=== PATIENT | female | born 1995 | race African-American/Black ===

== ENCOUNTER 2017-03-24 16:23 | Emergency (ER) | payer OTHER ==
[2017-03-24 16:28] VITALS: BP 110/51; PULSE 97; TEMP 99.4; BMI 29.5
--- NOTE | 2017-03-24 16:30 | PDOC ---
Rapid Medical Evaluation Time Seen by Provider: 03/24/17 16:25 Medical Evaluation: Allergies Allergy/AdvReac Type Severity Reaction Status Date / Time No Known Allergies Allergy Verified 03/13/15 03:09 03/24/17 16:26 I have performed a brief in-person evaluation of this patient. The patient presents with a chief complaint of: 18 weeks preg by dates with cough and right upper back pain x3 days Pertinent physical exam findings: HEENT: tonsillar erythema without exudate PULM: diminished to right base I have ordered the following: influenza testing The patient will proceed to the ED for further evaluation. Discharge Disposition - Diagnosis Cough - Referrals - Patient Instructions - Post Discharge Activity
[2017-03-24] MEDS ORDERED: ACETAMINOPHEN 325 MG TABLET (FP) PO ONE (17:07)
--- NOTE | 2017-03-24 17:07 | PDOC ---
History of Present Illness - General Chief Complaint: Cold Symptoms Stated Complaint: COLD S/S Time Seen by Provider: 03/24/17 16:25 History Source: Patient - History of Present Illness Timing/Duration: reports: other Associated Symptoms: reports: chest pain/soreness, cough, shortness of breath, sore throat. denies: fever/chills, headache, nasal congestion, wheezing Past History - Past Medical History Allergies/Adverse Reactions: Allergies Allergy/AdvReac Type Severity Reaction Status Date / Time No Known Allergies Allergy Verified 03/24/17 16:28 Home Medications: Ambulatory Orders Oseltamivir Phosphate [Tamiflu] 75 mg PO BID #10 capsule 03/24/17 COPD: No DVT: No - Reproductive History (#): 2 Para: 0 Cervical CA: No Dysfunctional Uterine Bleeding: No Ectopic : No Endometrial CA: No Polycystic Ovaries: No Therapeutic (s) & number: Yes (2) Tubal Ligation: No Spontaneous : 0 - Immunization History Immunization Up to Date: Yes - Suicide/Smoking/Psychosocial Hx Smoking History: Never smoked Have you smoked in the past 12 months: No Number of Cigarettes Smoked Daily: 0 Cigars Per Day: 0 Hx Alcohol Use: No Drug/Substance Use Hx: No Substance Use Type: None Review of Systems - Review of Systems Constitutional: No: Fever Respiratory: Yes: Cough, Shortness of Breath. No: Wheezing Cardiac (ROS): Yes: Chest Pain ABD/GI: No: Diarrhea, Vomiting *Physical Exam - Vital Signs Last Vital Signs Temp Pulse Resp BP Pulse Ox 99.4 F 97 H 20 110/51 100 03/24/17 16:24 03/24/17 16:24 03/24/17 16:24 03/24/17 16:24 03/24/17 16:24 - Physical Exam General Appearance: Yes: Appropriately Dressed. No: Apparent Distress HEENT: positive: Normal ENT Inspection, Normal Voice. negative: Scleral Icterus (R), Scleral Icterus (L) Neck: positive: Supple. negative: Lymphadenopathy (R), Lymphadenopathy (L) Respiratory/Chest: positive: Decreased Breath Sounds (to R base). negative: Respiratory Distress Cardiovascular: positive: Regular Rate, S1, S2 Integumentary: positive: Dry, Warm Neurologic: positive: Fully Oriented, Alert, Normal Mood/Affect Medical Decision Making - Medical Decision Making 03/24/17 17:06 21-year-old female approximately 18 weeks with no issues with so far, presents with dry cough with pleuritic chest pain only with coughing and possible shortness of breath x 2 days. No hemoptysis, ear pain, body aches, fever or chills. No recent sick contacts or travel. Patient well- appearing and stable with exam only remarkable for decreased sound to right base. Influenza and chest x-ray pending 03/24/17 17:12 03/24/17 18:32 Flu A+. Pt remained stable and well appearing, in ED. Will discharge with Tamiflu given current . Patient to contact her OB in am to make aware if positive flu. Strict return precautions given 03/24/17 18:36 *DC/Admit/Observation/Transfer Diagnosis at time of Disposition: Influenza A - Discharge Dispostion Disposition: HOME Condition at time of disposition: Stable - Prescriptions Prescriptions: Oseltamivir Phosphate [Tamiflu] 75 mg PO BID #10 capsule - Referrals - Patient Instructions Printed Discharge Instructions: Influenza Additional Instructions: Rest, to drink plenty of fluids, take Tylenol for pain or fever and take Tamiflu is indicated. If symptoms worsen and you develop constant shortness of breath, chest pain and escalating fever, return to ER immediately. Please contact your OB tomorrow to make aware of positive flu - Post Discharge Activity
[2017-03-24] MEDS ORDERED: ACETAMINOPHEN 325 MG TABLET (FP) ONE (17:23)
== END 2017-03-24 18:45 | disposition home or self-care (01) ==
LOC: JERFT 16:23
DX: O98.512 Other viral diseases complicating pregnancy, second trimester (principal); B33.8 Other specified viral diseases; J09.X2 Influenza due to identified novel influenza A virus with other respiratory manifestations; Z3A.18 18 weeks gestation of pregnancy
CPT/HCPCS: 71046-TC; 87804; 99281-25

== ENCOUNTER 2017-08-23 16:35 | Inpatient (IN) | payer OTHER ==
[2017-08-23 17:28] VITALS: BMI 30.1
[2017-08-23] MEDS ORDERED: TUBERCULIN PPD 5 TU/0.1ML SYRINGE (IN PATIENT USE ONLY) ID ONE (18:45)
[2017-08-23 19:29] LABS: BASO % 0.6 % (0-2.0); EOS % 0.6 % (0-4.5); HEMATOCRIT 37.7 % (32.4-45.2); HEMOGLOBIN 11.8 GM/dL (10.7-15.3); LYMPH % 19.7 % (8-40); MCH 24.3 pg (25.7-33.7); MCHC 31.3 g/dl (32.0-36.0); MEAN CELL VOLUME 77.5 fl (80-96); MEAN PLT VOLUME 10.6 fl (7.5-11.1); MONO % 5.2 % (3.8-10.2); NEUT % 73.9 % (42.8-82.8); PLATELET COUNT 185 K/MM3 (134-434); RBC 4.86 M/mm3 (3.60-5.2); RDW 14.7 % (11.6-15.6); WHITE BLOOD COUNT 5.6 K/mm3 (4.0-10.0)
[2017-08-23 19:47] LABS: INR 0.98 (0.82-1.09); PROTHROMBIN TIME (PATIENT) 11.1 SEC (9.7-13.0)
[2017-08-23 19:50] LABS: ACTIVATED PTT 25.2 SECONDS (25.2-36.5)
[2017-08-23 20:18] LABS: ANION GAP 10 (8-16); BLOOD UREA NITROGEN 8 mg/dL (7-18); CALCIUM 9.1 mg/dL (8.5-10.1); CHLORIDE 101 mmol/L (98-107); CO2 26 mmol/L (21-32); CREATININE 0.7 mg/dL (0.55-1.02); GLUCOSE,RANDOM 97 mg/dL (74-106); POTASSIUM 3.8 mmol/L (3.5-5.1); SODIUM 137 mmol/L (136-145)
--- NOTE | 2017-08-23 20:24 | PN ---
Progress Note, Labor Vaginal Exam #1 Labor Exam Date: 08/23/17 Labor Exam Time: 20:15 Heart Rate (range): 120's Dilatation: 3 Effacement (%): 50 Amniotic Membrane Status: Intact Presentation: Vertex/Position Station: -3 (22yo P0 @ 39.6wks, post term IOL MF Status reasuring Cervidil placed in the posterior fornix)
[2017-08-23] MEDS ORDERED: DINOPROSTONE 10 MG VAGINAL SUPPOSITORY VG ONE (20:39)
[2017-08-23] MEDS: ELECTROLYTE-148 SOLN 1,000 ML IV SCH ×2 (21:30→23:30)
[2017-08-23] MEDS ORDERED: BUTORPHANOL TARTRATE 1 MG/ML VIAL ONE ×2 (22:52)
[2017-08-23] MEDS ORDERED: PROMETHAZINE HCL 25 MG/1 ML VIAL ONE (22:53)
[2017-08-23] MEDS ORDERED: PROMETHAZINE HCL 25 MG/1 ML VIAL IVPB ONE (23:00)
[2017-08-23] MEDS ORDERED: BUTORPHANOL TARTRATE 1 MG/ML VIAL IVPB ONE (23:00)
[2017-08-23] MEDS ORDERED: OXYTOCIN 15 UNITS/ LR 250 ML 250 ML IVPB SCH (23:45)
[2017-08-23] MEDS ORDERED: OXYTOCIN 30 UNITS in 0.9% NS 30 UNIT/500 ML INFUS.BAG IVPB SCH (23:45)
[2017-08-24] MEDS ORDERED: AMPICILLIN - 2 GM in SODIUM CHLORIDE 100 ML IVPB ONE (01:00)
[2017-08-24] MEDS ORDERED: AMPICILLIN SODIUM 2 GM VIAL ONE (01:21)
[2017-08-24] MEDS ORDERED: BUPIVACAINE HCL/PF 0.25% (2.5MG/ML) 10 ML VIAL ONE (01:40)
[2017-08-24] MEDS ORDERED: LIDO 2%/EPI 1:200000 PRESRVFRE (20 ML SDVIAL) ONE (01:40)
[2017-08-24] MEDS ORDERED: FENTANYL/BUPIVACAINE/NS/PF - PCEA - 50 ML DISP.SYRIN EP ONE (01:47)
[2017-08-24] MEDS ORDERED: NALOXONE HCL 0.4 MG/ML VIAL IVPUSH PRN (02:14)
[2017-08-24] MEDS ORDERED: FENTANYL/BUPIVACAINE/NS/PF - PCEA - 50 ML DISP.SYRIN EP SCH (02:15)
[2017-08-24] MEDS ORDERED: OXYTOCIN 20 UNITS in 0.9% NS 20 UNIT/1,000 ML INFUS.BAG IV ONE ×2 (03:43→07:37)
[2017-08-24] MEDS ORDERED: AMPICILLIN SODIUM 1 GM VIAL ONE (04:24)
--- NOTE | 2017-08-24 04:42 | PN ---
Progress Note, Labor Vaginal Exam #2 Labor Exam Date: 08/24/17 Labor Exam Time: 04:30 Heart Rate (range): 130 Dilatation: FD Effacement (%): 100 Amniotic Membrane Status: Ruptured Presentation: Vertex/Position Station: +2 (Patient is instructed to push She is not cooparative, behaving inappropriately, not following instructions)
[2017-08-24] MEDS ORDERED: AMPICILLIN - 1 GM in SODIUM CHLORIDE 100 ML IVPB SCH (05:00)
--- NOTE | 2017-08-24 05:39 | PN ---
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 Infant Gender: Male Position: Left, OA Total Hours ROM (Hrs/Mins): Unknown, noted ROM @ FD - 1 Minute Total Score: 9 5 Minutes Total Score: 9 - [place] Feeding Plan Initial Plan: Elected not to breastfeed exclusively throughout hospitalization Remarks - Remarks Remarks: Patient was Fully Dilated, ABI vertex at +3 station, providing very poor effort FHR had repetitive variable decels Kiwi vacuum applied 2 pop offs 3 pulls Successful delivery over intact perineum Sulcal tear noted and repaired with 2-0 Chromic vaginal 1st degree repaired with 2-0 Chromic labia minora swelling noted Gaviria replaced ice to perineum
--- NOTE | 2017-08-24 05:59 | HP ---
Past Medical History - Primary Care Physician PCP:: Bobby Abraham - Admission Chief Complaint: 22yo P0 @ 39.6wks with decreasing CHUCK for IOL. +FM, no VB, no LOF, no ctx History of Present Illness: 1. GBS + for Ampicillin 2. Late transfer of care 3. Abnormal 2hr GTT 4. Anemia History Source: Patient, Medical Record Limitations to Obtaining History: No Limitations - Past Medical History ...: 3 ...Para: 0 ...Term: 0 ...: 0 ...Spon : 0 ...Induced : 2 ...Multiple Gestation: 0 ...LMP: 11/17/16 ... Weeks Gestation by Dates: 39.6 ...EDC by Dates: 08/24/17 Heme/Onc: Yes: Anemia Additional Medical History: Eye surgery - Past Surgical History Past Surgical History: Yes: None Hx Myomectomy: No Hx Transabdominal Cerclage: No - Smoking History Smoking history: Never smoked Have you smoked in the past 12 months: No Aproximately how many cigarettes per day: 0 - Alcohol/Substance Use Hx Alcohol Use: No History of Substance Use: reports: None - Social History Usual Living Arrangement: Yes: Alone Home Medications - Allergies Allergies/Adverse Reactions: Allergies Allergy/AdvReac Type Severity Reaction Status Date / Time No Known Allergies Allergy Verified 08/23/17 17:47 - Home Medications Home Medications: Ambulatory Orders Ferrous Sulfate [Iron] 325 mg PO DAILY 08/07/17 Vit/Iron Fum/Folic AC [ Tablet] 1 each PO DAILY 08/07/17 Review of Systems - Review of Systems Constitutional: reports: No Symptoms Eyes: reports: No Symptoms HENT: reports: No Symptoms Neck: reports: No Symptoms Cardiovascular: reports: No Symptoms Respiratory: reports: No Symptoms Gastrointestinal: reports: No Symptoms Genitourinary: reports: No Symptoms Breasts: reports: No Symptoms Reported Musculoskeletal: reports: No Symptoms Integumentary: reports: No Symptoms Neurological: reports: No Symptoms Endocrine: reports: No Symptoms Hematology/Lymphatic: reports: No Symptoms Psychiatric: reports: No Symptoms Physical Exam - Maternity Vital Signs: Vital Signs Temperature 97.2 F L 08/24/17 03:00 Pulse Rate 76 08/24/17 03:30 Respiratory Rate 17 08/24/17 03:30 Blood Pressure 120/61 08/24/17 03:30 O2 Sat by Pulse Oximetry (%) 100 08/24/17 03:30 Constitutional: Yes: Well Nourished Eyes: Yes: WNL HENT: Yes: WNL, Atraumatic, Normocephalic Neck: Yes: WNL, Supple, Trachea Midline Cardiovascular: Yes: WNL, Regular Rate and Rhythm Lungs: Clear to auscultation Breast(s): Yes: WNL - Abdominal Exam/OB Fundal Height: 40 Number of Fetuses: Single Presentation: Vertex Contractions: No Monitor Mode: External Heart Rate Location: Midline Category: I Accelerations: Uniform Decelerations: None - Vaginal Exam/OB Speculum Exam: No Dilatation (cm): 3 Effacement (%): 50 Amniotic Membrane Status: Intact Presentation: Vertex/Position Station: -3 - Physical Exam Musculoskeletal: Yes: WNL Extremities: Yes: WNL Edema: No ...Motor Strength: WNL Psychiatric: Yes: WNL, Alert, Oriented - Labs Lab Results: CBC, BMP 08/23/17 19:00 08/23/17 19:00 Assessment/Plan 22yo P0 @ 39.6wks with decreasing CHUCK admited for IOL Cervidil placed in the posterior fornix Ampicillin for GBS prophilaxis in active labor Pain medication as needed MF status reassuring
[2017-08-24] MEDS ORDERED: WITCH HAZEL 50% (TUCKS) 40 PAD/JAR PAD TP PRN (06:15)
[2017-08-24] MEDS ORDERED: BISACODYL 10 MG SUPP.RECT RC PRN (06:15)
[2017-08-24] MEDS ORDERED: METHYLERGONOVINE MALEATE 0.2 MG/1 ML AMP IM PRN (06:15)
[2017-08-24] MEDS ORDERED: BENZOCAINE 28 GM HEMORRHOIDAL OINTMENT TP PRN (06:15)
[2017-08-24] MEDS ORDERED: D5W-LR W/ 20 UNITS OXYTOCIN 20 UNIT/1,000 ML INFUS.BAG IV SCH (06:15)
[2017-08-24] MEDS ORDERED: BENZOCAINE 20% 57 GM BOTTLE TP PRN (06:15)
[2017-08-24 07:34] LABS: VENOUS PC02 55.8 mmHg (38-52); VENOUS PH 7.3 (7.32-7.42)
[2017-08-24] MEDS: FERROUS SO4 325 MG TABLET (FP) PO SCH ×2 (08:00→16:47)
[2017-08-24] MEDS: PRENATAL VITAMINS W/ FOLIC ACID TABLET (FP) PO SCH (09:57)
[2017-08-24] MEDS: IBUPROFEN 600 MG TABLET (FP) PO PRN ×2 (13:50→21:15)
[2017-08-24] MEDS: ACETAMINOPHEN 325 MG TABLET (FP) PO PRN (21:15)
[2017-08-25] MEDS: ACETAMINOPHEN 325 MG TABLET (FP) PO PRN ×3 (05:04→18:00)
[2017-08-25] MEDS: IBUPROFEN 600 MG TABLET (FP) PO PRN ×3 (05:05→18:02)
--- NOTE | 2017-08-25 07:58 | PN ---
Post Progress Note - Subjective Subjective: No complaints. Vulva swollen but no pain Post Day: 1 Type of Delivery: Vital Signs: Vital Signs Temperature 98.5 F 08/25/17 06:00 Pulse Rate 69 08/25/17 06:00 Respiratory Rate 20 08/25/17 06:00 Blood Pressure 115/65 08/25/17 06:00 O2 Sat by Pulse Oximetry (%) 100 08/24/17 07:00 Breast Exam: Yes: Soft Uterus: Yes: Fundus Firm, Non-tender Abdomen/GI: Yes: Abdomen soft, Tolerating PO Lochia: Yes: Rubra Lochia, amount: Small Extremities: Yes: Calves non-tender Perineum: Yes: Intact Activity: Ambulating - Labs Labs: CBC WBC 5.6 K/mm3 (4.0-10.0) 08/23/17 19:00 RBC 4.86 M/mm3 (3.60-5.2) 08/23/17 19:00 Hgb 11.8 GM/dL (10.7-15.3) 08/23/17 19:00 Hct 37.7 % (32.4-45.2) 08/23/17 19:00 MCV 77.5 fl (80-96) L 08/23/17 19:00 MCH 24.3 pg (25.7-33.7) L 08/23/17 19:00 MCHC 31.3 g/dl (32.0-36.0) L 08/23/17 19:00 RDW 14.7 % (11.6-15.6) 08/23/17 19:00 Plt Count 185 K/MM3 (134-434) 08/23/17 19:00 MPV 10.6 fl (7.5-11.1) 08/23/17 19:00 Absolute Neuts (auto) 4.1 # 08/23/17 19:00 Neutrophils % 73.9 % (42.8-82.8) 08/23/17 19:00 Lymphocytes % 19.7 % (8-40) 08/23/17 19:00 Monocytes % 5.2 % (3.8-10.2) 08/23/17 19:00 Eosinophils % 0.6 % (0-4.5) D 08/23/17 19:00 Basophils % 0.6 % (0-2.0) 08/23/17 19:00 Nucleated RBC % 0 % (0-0) 08/23/17 19:00 Assessment/Plan 22yo P1 s/p , doing well stable, afebrile. care instructions reviewed. Continue routine care. Ambulation encouraged Discharge instruction reviewed.
--- NOTE | 2017-08-25 08:02 | DS ---
Physical Exam-ASSESSMENT EXPERT Vital Signs: Vital Signs Temperature 98.5 F 08/25/17 06:00 Pulse Rate 69 08/25/17 06:00 Respiratory Rate 20 08/25/17 06:00 Blood Pressure 115/65 08/25/17 06:00 O2 Sat by Pulse Oximetry (%) 100 08/24/17 07:00 Constitutional: Yes: Well Nourished, No Distress, Calm Eyes: Yes: WNL, Conjunctiva Clear HENT: Yes: WNL, Atraumatic, Normocephalic Neck: Yes: WNL, Supple, Trachea Midline Cardiovascular: Yes: WNL, Regular Rate and Rhythm Respiratory: Yes: WNL, Regular, CTA Bilaterally Gastrointestinal: Yes: WNL, Normal Bowel Sounds, Soft ...Rectal Exam: Yes: WNL Renal/: Yes: WNL External Genitalia: Yes: Edema ....Post : Yes: Uterus firm, Uterus non-tender Breast(s): Yes: WNL Musculoskeletal: Yes: WNL Extremities: Yes: WNL Edema: Yes Edema: LLE: Trace, RLE: Trace Integumentary: Yes: WNL Neurological: Yes: WNL, Alert, Oriented ...Motor Strength: WNL Psychiatric: Yes: WNL, Alert, Oriented Labs: CBC, BMP 08/23/17 19:00 08/23/17 19:00 Delivery - Delivery Vaginal Delivery: Vacuum Extraction Type of Anesthesia: Epidural Episiotomy/Laceration: Midline, Vaginal Extension/lac, 1st degree EBL (cc): 300 Delivery, Single - Stages of Labor Date 1st Stage Initiatied: 08/24/17 Time 1st Stage Initiated: 02:15 Date 2nd Stage Initiated: 08/24/17 Time 2nd Stage Initiated: 04:30 Date of Delivery: 08/24/17 Time of Delivery: 05:06 Time Placenta Delivered: 05:09 Placenta: Yes: Spontaneous - 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 You may walk unlimited marion of and climb stairs. You may resume driving the car when you feel safe and comfortable behind the wheel. No sexual activity as instructed. Wound care If you have a bandage, leave it on, and keep dry for 48-72 hours. After that time discard the outer bandage. If they are tapes on the skin under the out of bandage leave them in place. They will peel off in the next 7 to 10 days. Do Not Peel them off. You may shower the day after surgery. If there are tapes present on the skin, you may shower over them. Diet There are no dietary restrictions. Eat healthy, high-fiber foods. Drink 6 to 8 glasses of liquid each day. This will assist in keeping your bowels are regular. Pain management You may take Tylenol or acetaminophen or Ibuprofen (for example, Motrin, Advil etc.) from my pain prescription medication is ordered should be taken as prescribed for moderate to severe pain. Call MD for any of the following: Severe pain not relieved by medication Fever of 101 or higher Excessive bleeding or drainage on dressing Inability to urinate Referrals: Bobby Abraham MD [Staff Physician] - Disposition: HOME - Home Medications Comprehensive Discharge Medication List: Ambulatory Orders Ferrous Sulfate [Iron] 325 mg PO DAILY 08/07/17 Vit/Iron Fum/Folic AC [ Tablet] 1 each PO DAILY 08/07/17
[2017-08-25] MEDS: FERROUS SO4 325 MG TABLET (FP) PO SCH ×2 (08:07→18:00)
[2017-08-25 08:27] LABS: BASO % 0.4 % (0-2.0); EOS % 0.9 % (0-4.5); HEMATOCRIT 32.2 % (32.4-45.2); HEMOGLOBIN 10.3 GM/dL (10.7-15.3); LYMPH % 13.7 % (8-40); MCHC 32.1 g/dl (32.0-36.0); MEAN PLT VOLUME 10.5 fl (7.5-11.1); MONO % 5.4 % (3.8-10.2); NEUT % 79.6 % (42.8-82.8); PLATELET COUNT 143 K/MM3 (134-434); RBC 4.13 M/mm3 (3.60-5.2); RDW 14.9 % (11.6-15.6)
[2017-08-25] MEDS: PRENATAL VITAMINS W/ FOLIC ACID TABLET (FP) PO SCH (10:19)
[2017-08-25] MEDS ORDERED: SENNOSIDES/DOCUSATE COMBO (SENNA PLUS) TABLET (UD) PO PRN (22:00)
--- NOTE | 2017-08-25 23:51 | PN ---
Progress Note (short form) - Note Progress Note: Patient states desires circumcision for infant. Discussed risks including infection, bleeding, damage to tip of penis, and unsatisfactory result, resulting in surgical repair or repeat circumcision. Patient expressed understanding and consents to procedure. Reviewed infants chart, cleared for circumcision and normal genitalia per sandwich wrapper, Dr. Gage
[2017-08-26] MEDS: IBUPROFEN 600 MG TABLET (FP) PO PRN ×2 (01:45→09:18)
[2017-08-26] MEDS: ACETAMINOPHEN 325 MG TABLET (FP) PO PRN ×2 (01:46→09:18)
--- NOTE | 2017-08-26 07:34 | PN ---
Post Progress Note - Subjective Subjective: Patient without acute complaints. Reports tolerating oral intake without nausea or vomiting. Ambulating without dizziness. Denies fevers or chills. Pain well controlled with oral pain medication. without difficulty. Passing flatus. Post Day: 2 Type of Delivery: Vital Signs: Vital Signs Temperature 98.4 F 08/25/17 21:00 Pulse Rate 74 08/25/17 21:00 Respiratory Rate 20 08/25/17 21:00 Blood Pressure 115/62 08/25/17 21:00 O2 Sat by Pulse Oximetry (%) 100 08/24/17 07:00 Breast Exam: Yes: Engorged Uterus: Yes: Fundus Firm, Fundus below umbilicus Abdomen/GI: Yes: Abdomen soft, Passing flatus, Tolerating PO. No: Abdominal Distention, Tender Lochia: Yes: Serosa Lochia, amount: Small Extremities: Yes: Calves non-tender, Edema (trace) Activity: Ambulating - Labs Labs: CBC WBC 10.0 K/mm3 (4.0-10.0) D 08/25/17 07:40 RBC 4.13 M/mm3 (3.60-5.2) 08/25/17 07:40 Hgb 10.3 GM/dL (10.7-15.3) L D 08/25/17 07:40 Hct 32.2 % (32.4-45.2) L 08/25/17 07:40 MCV 78.0 fl (80-96) L 08/25/17 07:40 MCH 25.0 pg (25.7-33.7) L 08/25/17 07:40 MCHC 32.1 g/dl (32.0-36.0) 08/25/17 07:40 RDW 14.9 % (11.6-15.6) 08/25/17 07:40 Plt Count 143 K/MM3 (134-434) D 08/25/17 07:40 MPV 10.5 fl (7.5-11.1) 08/25/17 07:40 Absolute Neuts (auto) 8.0 # 08/25/17 07:40 Neutrophils % 79.6 % (42.8-82.8) 08/25/17 07:40 Lymphocytes % 13.7 % (8-40) D 08/25/17 07:40 Monocytes % 5.4 % (3.8-10.2) 08/25/17 07:40 Eosinophils % 0.9 % (0-4.5) 08/25/17 07:40 Basophils % 0.4 % (0-2.0) 08/25/17 07:40 Nucleated RBC % 0 % (0-0) 08/25/17 07:40 Assessment/Plan 22 yo PPD # 2 s/p , afebrile, vital signs stable, stable for discharge home today 1. Patient stable for discharge home today. 2. Patient encouraged to contact MD for: - Severe pain not controlled by oral pain medication - Fevers or chills - Nausea or vomiting, intolerance of oral intake 3. Patient to follow up in office in 4-6 weeks for visit
[2017-08-26 08:27] VITALS: BP 116/67; PULSE 69; TEMP 98
[2017-08-26] MEDS: FERROUS SO4 325 MG TABLET (FP) PO SCH (09:17)
[2017-08-26] MEDS: PRENATAL VITAMINS W/ FOLIC ACID TABLET (FP) PO SCH (09:17)
== END 2017-08-26 09:45 | disposition home or self-care (01) | DRG 560 ==
LOC: JLDR 16:35 → J3W 08-24 07:47
PROVIDERS: ADMIT Obstetrics & Gynecology; ATTEND Obstetrics & Gynecology
PROC: 10E0XZZ Delivery of Products of Conception, External Approach (ICD-10-PCS; principal; 2017-08-24)
PROC: 10D07Z6 Extraction of Products of Conception, Vacuum, Via Natural or Artificial Opening (ICD-10-PCS; 2017-08-24)
PROC: 0HQ9XZZ Repair Perineum Skin, External Approach (ICD-10-PCS; 2017-08-24)
PROC: 0W8NXZZ Division of Female Perineum, External Approach (ICD-10-PCS; 2017-08-24)
DX: O99.824 Streptococcus B carrier state complicating childbirth (principal); O76 Abnormality in fetal heart rate and rhythm complicating labor and delivery; O70.0 First degree perineal laceration during delivery; O99.02 Anemia complicating childbirth; D64.9 Anemia, unspecified; Z3A.39 39 weeks gestation of pregnancy; Z37.0 Single live birth
CPT/HCPCS: 36415; 59409; 80048; 82803; 85025; 85610; 85730; 86593; 86850; 86900; 86901

== ENCOUNTER 2018-10-26 18:34 | Emergency (ER) | payer OTHER ==
[2018-10-26 18:46] VITALS: BMI 23.0
[2018-10-26] MEDS ORDERED: SODIUM CHLORIDE 1,000 ML IV STA (19:17)
[2018-10-26] MEDS ORDERED: METOCLOPRAMIDE HCL INJECTION 10 MG/2 ML VIAL IVPUSH ONE (19:17)
[2018-10-26] MEDS ORDERED: ACETAMINOPHEN 1000 MG/100 ML VIAL (NON FORMULARY) IVPB ONE (19:18)
[2018-10-26] MEDS ORDERED: DEXAMETHASONE SOD PHOSPHATE 10 MG/1 ML VIAL IVPUSH ONE (19:25)
--- NOTE | 2018-10-26 19:25 | PDOC ---
History of Present Illness - General Chief Complaint: Headache Stated Complaint: HEADACHE, NECK PAIN, FEVER, EAR ACHE Time Seen by Provider: 10/26/18 19:16 History Source: Patient Exam Limitations: No Limitations - History of Present Illness Initial Comments: 10/26/18 19:19 HISTORY OF PRESENT ILLNESS: 23-year-old woman denies medical history of presents emergency department for evaluation of headache, fevers, clogged ears, neck pain, photophobia, phonophobia for 24 hours. Patient reports when the pain came on was a 7/10 and slowly got worse overnight. Patient took Motrin with minimal relief of symptoms. Patient denies any blurry vision or dizziness. Patient reports frontal headache worsens when she sits forward. She denies any nausea or vomiting. No recent travel or sick contacts. PAST MEDICAL HISTORY: Denies past medical history SURGICAL HISTORY: Denies ALLERGIES: No known drug allergies REVIEW OF SYSTEMS General/Constitutional: see HPI HEENT: see HPI Cardiovascular: Denies chest pain or shortness of breath. Respiratory: Denies cough, wheezing, or hemoptysis. Gastrointestinal: Denies nausea, vomiting, diarrhea or constipation. Denies rectal bleeding. Genitourinary: Denies dysuria, frequency, or change in urination. Musculoskeletal: Denies joint or muscle swelling or pain. Denies neck or back pain. Skin and breasts: Denies rash or easy bruising. Neurologic: see HPI Psychiatric: Denies depression or anxiety. Endocrine: Denies increased thirst. Denies abnormal weight change. Hematologic/Lymphatic: Denies anemia, easy bleeding, or history of blood clots. Allergic/Immunologic: Denies hives or skin allergy. Denies latex allergy. PHYSICAL EXAM General Appearance: Well-appearing, appropriately dressed. No apparent distress , no intoxication. HEENT: EOMI, PERRLA, normal voice, TMs normal. No conjunctival pallor. No photophobia, scleral icterus. OP mildly erythematous with scant exudate. Neck: Supple. Trachea midline. No tenderness, rigidity, carotid bruit, stridor or thyromegaly. Anterior cervical lymphadenopathy present. Respiratory/Chest: Lungs CTAB. No shortness of breath, chest tenderness, respiratory distress, accessory muscle use. No crackles, rales, rhonchi, stridor , wheezing, dullness Cardiovascular: RRR. S1, S2. No JVD, murmur, bradycardia, tachycardia. Vascular Pulses: Dorsalis-Pedis (R): 2+, Dorsalis-Pedis (L): 2+ Gastrointestinal/Abdominal: Normal bowel sounds. Abdomen soft, non-distended. No tenderness or rebound tenderness. No organomegaly, pulsatile mass, guarding, hernia, hepatomegaly, splenomegaly. Lymphatic: No adenopathy, tenderness. Musculoskeletal/Extremities: Normal inspection. FROM of all extremities, normal capillary refill. Pelvis Stable. No CVA tenderness. No tenderness to extremities, pedal edema, swelling, erythema or deformity. Integumentary: Appropriate color, dry, warm. No cyanosis, erythema, jaundice or rash Neurologic: flight test shop mechanic II-XII intact. Fully oriented, alert. Appropriate mood/affect. Motor strength 5/5. No appreciable EOM palsy, facial droop or sensory deficit. Past History - Past Medical History Allergies/Adverse Reactions: Allergies Allergy/AdvReac Type Severity Reaction Status Date / Time No Known Allergies Allergy Verified 10/26/18 18:41 Home Medications: Ambulatory Orders Cephalexin Monohydrate [Keflex -] 500 mg PO BID #20 capsule 10/27/18 Asthma: No Cancer: No Cardiac Disorders: No COPD: No DVT: No Diabetes: No HTN: No Seizures: No Thyroid Disease: No Other medical history: denies - Reproductive History (#): 2 Para: 0 Cervical CA: No Dysfunctional Uterine Bleeding: No Ectopic : No Endometrial CA: No Polycystic Ovaries: No Therapeutic (s) & number: Yes (2) Tubal Ligation: No Spontaneous : 0 - Immunization History Immunization Up to Date: Yes - Suicide/Smoking/Psychosocial Hx Smoking History: Never smoked Have you smoked in the past 12 months: No Number of Cigarettes Smoked Daily: 0 Cigars Per Day: 0 Information on smoking cessation initiated: No Hx Alcohol Use: No Drug/Substance Use Hx: No Substance Use Type: None Hx Substance Use Treatment: No *Physical Exam - Vital Signs Last Vital Signs Temp Pulse Resp BP Pulse Ox 101.1 F H 100 H 19 121/74 96 10/26/18 18:39 10/26/18 18:39 10/26/18 18:39 10/26/18 18:39 10/26/18 18:39 ED Treatment Course - LABORATORY CBC & Chemistry Diagram: 10/26/18 19:30 10/26/18 19:30 Medical Decision Making - Medical Decision Making 10/26/18 19:23 A/P: 23-year-old woman with headaches, fevers, earache for 1 day Basic labs, Monospot, rapid strep testing Normal saline 1 L bolus Reglan 10 mg IV Benadryl 25 mg IV Tylenol 1 g IV Low threshold for CT scan/LP if testing is negative. 10/26/18 21:17 Rapid strep testing is negative. CBC is unremarkable Chemistries were hemolyzed CAT scan of the head and sinuses 10/26/18 22:30 CT of the head and sinuses as read by Dr. Jc: Negative exam. No discrete noncontrast CT pathology is identified. No CT evidence of sinusitis. UA suggestive of infection. LP to be performed. 10/27/18 00:45 CSF shows mildly elevated protein otherwise normal. I will discharge the patient home prescription for Keflex to be taken for urinary tract infection and referral for neurology for the headaches. I discussed the physical exam findings, ancillary test results and final diagnoses with the patient. I answered all of the patient's questions. The patient was satisfied with the care received and felt comfortable with the discharge plan and treatment plan. The patient will call their primary care physician within 24 hours to arrange follow-up and will return to the Emergency Department with any new, persistent or worsening symptoms. *DC/Admit/Observation/Transfer Diagnosis at time of Disposition: UTI (urinary tract infection) Qualifiers: Urinary tract infection type: acute cystitis Hematuria presence: without hematuria Qualified Code(s): N30.00 - Acute cystitis without hematuria Migraine Qualifiers: Migraine type: without aura Status migrainosus presence: without status migrainosus Intractability: not intractable Qualified Code(s): G43.009 - Migraine without aura, not intractable, without status migrainosus - Discharge Dispostion Disposition: HOME Condition at time of disposition: Stable Decision to Admit order: No - Prescriptions Prescriptions: Cephalexin Monohydrate [Keflex -] 500 mg PO BID #20 capsule - Referrals Referrals: Rock Weeks MD [Staff Physician] - - Patient Instructions Additional Instructions: Rest, drink lots of fluids: Teas, water, soups Avoid contact with others until fevers and symptoms resolved Lots of handwashing and good hygiene Continue [id number] medications for symptomatic relief Tylenol or Motrin for fever and pain Continue all of antibiotics until completed you have been given a referral for neurology. Call to schedule an appointment for reevaluation. Followup with private physician in one week for repeat urinalysis/reevaluation Return to emergency department for worsened symptoms, fevers, dehydration - Post Discharge Activity
--- NOTE | 2018-10-26 19:30 | PDOC ---
*Physical Exam - Vital Signs Last Vital Signs Temp Pulse Resp BP Pulse Ox 101.1 F H 100 H 19 121/74 96 10/26/18 18:39 10/26/18 18:39 10/26/18 18:39 10/26/18 18:39 10/26/18 18:39 ED Treatment Course - LABORATORY CBC & Chemistry Diagram: 10/26/18 19:30 10/26/18 19:30 Medical Decision Making - Medical Decision Making 10/26/18 19:29 Patient seen by the advanced practice provider under my direct supervision. Ancillary testing reviewed as necessary. I agree with plan as outlined by the advanced practice provider. *DC/Admit/Observation/Transfer Diagnosis at time of Disposition: UTI (urinary tract infection) Qualifiers: Urinary tract infection type: acute cystitis Hematuria presence: without hematuria Qualified Code(s): N30.00 - Acute cystitis without hematuria Migraine Qualifiers: Migraine type: without aura Status migrainosus presence: without status migrainosus Intractability: not intractable Qualified Code(s): G43.009 - Migraine without aura, not intractable, without status migrainosus - Discharge Dispostion Disposition: HOME Condition at time of disposition: Stable - Prescriptions Prescriptions: Cephalexin Monohydrate [Keflex -] 500 mg PO BID #20 capsule - Referrals Referrals: Rock Weeks MD [Staff Physician] - - Patient Instructions Additional Instructions: Rest, drink lots of fluids: Teas, water, soups Avoid contact with others until fevers and symptoms resolved Lots of handwashing and good hygiene Continue aand-tke-dmysugc medications for symptomatic relief Tylenol or Motrin for fever and pain Continue all of antibiotics until completed you have been given a referral for neurology. Call to schedule an appointment for reevaluation. Followup with private physician in one week for repeat urinalysis/reevaluation Return to emergency department for worsened symptoms, fevers, dehydration - Post Discharge Activity
[2018-10-26] MEDS ORDERED: METOCLOPRAMIDE HCL INJECTION 10 MG/2 ML VIAL ONE (19:35)
[2018-10-26] MEDS ORDERED: ACETAMINOPHEN INJECTION 100 ML IVPB ONE (19:35)
[2018-10-26 19:58] LABS: BASO % 0.6 % (0-2.0); HEMATOCRIT 36.3 % (32.4-45.2); HEMOGLOBIN 11.4 GM/dL (10.7-15.3); MCH 21.3 pg (25.7-33.7); MCHC 31.3 g/dl (32.0-36.0); MEAN CELL VOLUME 67.9 fl (80-96); MEAN PLT VOLUME 10.6 fl (7.5-11.1); MONO % 7.8 % (3.8-10.2); NEUT % 73.6 % (42.8-82.8); PLATELET COUNT 273 K/MM3 (134-434); RBC 5.34 M/mm3 (3.60-5.2); RDW 18.5 % (11.6-15.6); WHITE BLOOD COUNT 5.1 K/mm3 (4.0-10.0)
[2018-10-26 20:33] LABS: ANISOCYTOSIS 1+; PLATELET ESTIMATE ADEQUATE
[2018-10-26 20:40] LABS: EPI CELLS 2.8 /HPF (0-5/HPF); HYALINE CASTS 12 /lpf (0-8); URINE APPEARANCE CLEAR; URINE BACTERIA 118.2 /hpf (NEGATIVE); URINE BILIRUBIN NEGATIVE (NEGATIVE); URINE COLOR YELLOW; URINE GLUCOSE (UA) NEGATIVE (NEGATIVE); URINE KETONE 1+ (NEGATIVE); URINE LEUK ESTERASE 2+ (NEGATIVE); URINE NITRITE NEGATIVE (NEGATIVE); URINE PROTEIN NEGATIVE (NEGATIVE); URINE RBC 1 /hpf (0-4); URINE UROBILINOGEN 0.2 mg/dL (0.2-1.0); URINE WBC 26 /hpf (0-5)
[2018-10-26] MEDS ORDERED: DEXAMETHASONE SOD PHOSPHATE 10 MG/1 ML VIAL ONE (21:05)
[2018-10-26 23:55] LABS: CSF APPEARANCE CLEAR; CSF COLOR COLORLESS; CSF WBC 2
[2018-10-27 00:26] LABS: BF GLUCOSE (CSF ONLY) 53 mg/dL (40-70)
[2018-10-27 04:18] VITALS: BP 130/70; PULSE 80; TEMP 98
== END 2018-10-27 01:04 | disposition home or self-care (01) ==
LOC: JER 18:34
PROC: 3E033NZ Introduction of Analgesics, Hypnotics, Sedatives into Peripheral Vein, Percutaneous Approach (ICD-10-PCS; principal; 2018-10-26)
PROC: 3E033GC Introduction of Other Therapeutic Substance into Peripheral Vein, Percutaneous Approach (ICD-10-PCS; 2018-10-26)
PROC: 3E0337Z Introduction of Electrolytic and Water Balance Substance into Peripheral Vein, Percutaneous Approach (ICD-10-PCS; 2018-10-26)
DX: G43.909 Migraine, unspecified, not intractable, without status migrainosus (principal); N30.00 Acute cystitis without hematuria
CPT/HCPCS: 36415; 70450-TC; 70486-TC; 81003; 82945; 84157; 84703; 85025; 87070; 87086; 87880; 99283-25; J0131; J1100; J7030

== ENCOUNTER 2018-11-21 11:01 | Emergency (ER) | payer OTHER | END 2018-11-21 12:37 | disposition home or self-care (01) | LOC: JERFT 11:01 ==

== ENCOUNTER 2020-07-18 01:30 | Inpatient (IN) | payer OTHER ==
[2020-07-18] MEDS ORDERED: PROMETHAZINE HCL 25 MG/1 ML VIAL IVPUSH ONE (02:42)
[2020-07-18] MEDS ORDERED: BUTORPHANOL TARTRATE 1 MG/ML VIAL IVPB ONE ×2 (02:42→11:30)
[2020-07-18] MEDS ORDERED: ELECTROLYTE-148 SOLN 1,000 ML IV SCH (02:45)
[2020-07-18 04:01] LABS: BASO % 0.4 % (0-2.0); EOS % 1.2 % (0-4.5); HEMATOCRIT 28.7 % (32.4-45.2); HEMOGLOBIN 9.1 GM/dL (10.7-15.3); LYMPH % 23.6 % (8-40); MCH 22.6 pg (25.7-33.7); MCHC 31.8 g/dl (32.0-36.0); MEAN CELL VOLUME 71.1 fl (80-96); MEAN PLT VOLUME 10.5 fl (7.5-11.1); MONO % 6.4 % (3.8-10.2); NEUT % 68.4 % (42.8-82.8); PLATELET COUNT 232 K/MM3 (134-434); RBC 4.04 M/mm3 (3.60-5.2); RDW 17.1 % (11.6-15.6); WHITE BLOOD COUNT 6.5 K/mm3 (4.0-10.0)
[2020-07-18 04:02] VITALS: BMI 31.3
[2020-07-18 04:12] LABS: INR 0.92 (0.83-1.09); PROTHROMBIN TIME (PATIENT) 11.3 SEC (9.7-13.0)
[2020-07-18 04:15] LABS: ACTIVATED PTT 23.7 SECONDS (25.2-36.5)
[2020-07-18] MEDS: DEXTROSE 5%-LACTATED RINGERS 1,000 ML IV SCH ×2 (04:20→06:46)
[2020-07-18] MEDS ORDERED: BUTORPHANOL TARTRATE 2 MG/ML VIAL ONE ×2 (04:26→12:19)
[2020-07-18] MEDS ORDERED: PROMETHAZINE HCL 25 MG/1 ML VIAL ONE ×2 (04:26→12:19)
[2020-07-18 04:28] LABS: BLOOD UREA NITROGEN 5.2 mg/dL (7-18); CALCIUM 8.7 mg/dL (8.5-10.1)
[2020-07-18 04:32] LABS: CREATININE 0.5 mg/dL (0.55-1.3)
[2020-07-18] MEDS ORDERED: OXYTOCIN 30 UNITS in 0.9% NS 30 UNIT/500 ML INFUS.BAG IVPB ONE (07:54)
[2020-07-18] MEDS ORDERED: OXYTOCIN 30 UNITS in 0.9% NS 30 UNIT/500 ML INFUS.BAG IVPB SCH (08:00)
[2020-07-18] MEDS ORDERED: PCA PUMP NR ONE (14:06)
[2020-07-18] MEDS ORDERED: FENTANYL/BUPIVACAINE/NS/PF - PCEA - 50 ML DISP.SYRIN EP ONE (14:06)
[2020-07-18] MEDS ORDERED: PROMETHAZINE HCL 25 MG/1 ML VIAL IVPB ONE (14:12)
[2020-07-18] MEDS ORDERED: MIDAZOLAM HCL 2 MG/2 ML SINGLE DOSE VIAL ONE (14:30)
[2020-07-18] MEDS: FENTANYL/BUPIVACAINE/NS/PF - PCEA - 50 ML DISP.SYRIN EP SCH (14:45)
[2020-07-18] MEDS ORDERED: OXYTOCIN 20 UNITS in 0.9% NS 20 UNIT/1,000 ML INFUS.BAG IV ONE (15:18)
[2020-07-18] MEDS ORDERED: NALOXONE HCL 0.4 MG/ML VIAL IVPUSH PRN (15:20)
[2020-07-18] MEDS: OXYTOCIN 20 UNITS in 0.9% NS 20 UNIT/1,000 ML INFUS.BAG IV SCH (15:50)
[2020-07-18] MEDS ORDERED: BISACODYL 10 MG SUPP.RECT RC PRN (16:07)
[2020-07-18] MEDS ORDERED: WITCH HAZEL 50% (TUCKS) 40 PAD/JAR PAD TP PRN (16:07)
[2020-07-18] MEDS ORDERED: METHYLERGONOVINE MALEATE 0.2 MG/1 ML AMP IM PRN (16:07)
[2020-07-18] MEDS ORDERED: BENZOCAINE 28 GM HEMORRHOIDAL OINTMENT TP PRN (16:07)
[2020-07-18] MEDS ORDERED: BENZOCAINE 20% 57 GM BOTTLE TP PRN (16:07)
[2020-07-18 17:13] LABS: CORD BASE EXCESS -3.6 mmol/L (0-2); CORD HCO3 25.8 mmHg (20-29); CORD PCO2 67.2 mmHg (30-78); CORD pH 7.202 (7.14-7.44)
[2020-07-18 17:13] LABS: CORD BASE EXCESS -4.6 mmol/L (0-2); CORD HCO3 23.1 mmHg (20-29); CORD PCO2 52.7 mmHg (30-78); CORD pH 7.259 (7.14-7.44)
[2020-07-18] MEDS ORDERED: ACETAMINOPHEN 325 MG TABLET (FP) ONE (17:26)
[2020-07-18] MEDS ORDERED: IBUPROFEN 600 MG TABLET (FP) PO ONE (17:26)
[2020-07-18] MEDS: IBUPROFEN 600 MG TABLET (FP) PO PRN ×2 (17:30→21:52)
[2020-07-18] MEDS: ACETAMINOPHEN 325 MG TABLET (FP) PO PRN ×2 (17:30→21:51)
[2020-07-18] MEDS: FERROUS SO4 325 MG TABLET (FP) PO SCH (21:51)
[2020-07-19] MEDS: IBUPROFEN 600 MG TABLET (FP) PO PRN ×4 (02:22→23:58)
[2020-07-19] MEDS: ACETAMINOPHEN 325 MG TABLET (FP) PO PRN ×4 (02:23→23:59)
[2020-07-19 08:33] LABS: BASO % 0.5 % (0-2.0); HEMATOCRIT 26.9 % (32.4-45.2); HEMOGLOBIN 8.6 GM/dL (10.7-15.3); MCH 22.6 pg (25.7-33.7); MCHC 31.9 g/dl (32.0-36.0); MEAN CELL VOLUME 70.7 fl (80-96); MEAN PLT VOLUME 10.1 fl (7.5-11.1); MONO % 6.3 % (3.8-10.2); NEUT % 71.2 % (42.8-82.8); PLATELET COUNT 203 K/MM3 (134-434); WHITE BLOOD COUNT 8.6 K/mm3 (4.0-10.0)
[2020-07-19] MEDS: FERROUS SO4 325 MG TABLET (FP) PO SCH ×2 (09:05→21:40)
[2020-07-19] MEDS: PRENATAL VITAMINS W/ FOLIC ACID TABLET (FP) PO SCH (09:07)
[2020-07-19] MEDS ORDERED: SENNOSIDES/DOCUSATE COMBO (SENNA PLUS) TABLET (UD) PO PRN (22:00)
[2020-07-19] MEDS: FENTANYL/BUPIVACAINE/NS/PF - PCEA - 50 ML DISP.SYRIN EP SCH (22:29)
[2020-07-19] MEDS: OXYTOCIN 20 UNITS in 0.9% NS 20 UNIT/1,000 ML INFUS.BAG IV SCH (22:29)
[2020-07-19] MEDS: ELECTROLYTE-148 SOLN 1,000 ML IV SCH (22:29)
[2020-07-19] MEDS: DEXTROSE 5%-LACTATED RINGERS 1,000 ML IV SCH (22:29)
[2020-07-20] MEDS: ACETAMINOPHEN 325 MG TABLET (FP) PO PRN (08:04)
[2020-07-20] MEDS: IBUPROFEN 600 MG TABLET (FP) PO PRN (08:04)
[2020-07-20 10:35] VITALS: BP 116/74; PULSE 91; TEMP 97.4
[2020-07-20] MEDS: FERROUS SO4 325 MG TABLET (FP) PO SCH (10:45)
[2020-07-20] MEDS: PRENATAL VITAMINS W/ FOLIC ACID TABLET (FP) PO SCH (10:45)
== END 2020-07-20 11:45 | disposition home or self-care (01) | DRG 560 ==
LOC: JLDR 01:30 → J3W 17:45
PROVIDERS: ADMIT Obstetrics & Gynecology; ATTEND Obstetrics & Gynecology
PROC: 10907ZC Drainage of Amniotic Fluid, Therapeutic from Products of Conception, Via Natural or Artificial Opening (ICD-10-PCS; principal; 2020-07-18)
PROC: 10E0XZZ Delivery of Products of Conception, External Approach (ICD-10-PCS; 2020-07-18)
PROC: 0HQ9XZZ Repair Perineum Skin, External Approach (ICD-10-PCS; 2020-07-18)
DX: O70.0 First degree perineal laceration during delivery (principal); Z37.0 Single live birth; O99.03 Anemia complicating the puerperium; D64.9 Anemia, unspecified; Z3A.40 40 weeks gestation of pregnancy
CPT/HCPCS: 36415; 36600; 59025; 59409; 80048; 81003; 82803; 85025; 85610; 85730; 86780; 86850; 86900; 86901; 87086; C9803; U0003; U0005

== ENCOUNTER 2021-05-14 11:00 | Emergency (ER) | payer OTHER ==
[2021-05-14 11:47] VITALS: TEMP 101.5; BMI 32.8
[2021-05-14] MEDS ORDERED: IBUPROFEN 600 MG TABLET (FP) PO ONE (11:59)
[2021-05-14] MEDS ORDERED: ACETAMINOPHEN 500 MG TABLET (FP) PO ONE (12:00)
[2021-05-14] MEDS ORDERED: ACETAMINOPHEN 500 MG TABLET (FP) ONE (12:26)
[2021-05-14] MEDS ORDERED: KETOROLAC TROMETHAMINE 30 MG/1 ML VIAL IM ONE (13:14)
[2021-05-14] MEDS ORDERED: KETOROLAC TROMETHAMINE 30 MG/1 ML VIAL ONE (13:15)
[2021-05-14 13:27] VITALS: BP 108/54; PULSE 87
[2021-05-15 13:07] LABS: SARS-CoV-2 NAA Not Detected (Not Detected)
== END 2021-05-14 14:03 | disposition home or self-care (01) ==
LOC: JER 11:00
DX: J06.9 Acute upper respiratory infection, unspecified (principal)
CPT/HCPCS: 87804; 99283-25; C9803; U0003; U0005

== ENCOUNTER 2022-07-05 23:42 | Emergency (ER) | payer OTHER ==
[2022-07-05 23:51] VITALS: BP 115/71; PULSE 87; RESP 18; TEMP 98.3; BMI 33.8
[2022-07-06] MEDS ORDERED: ACETAMINOPHEN 325 MG TABLET (FP) PO ONE (00:54)
[2022-07-06] MEDS ORDERED: LIDOCAINE 5% TOPICAL PATCH TP ONE (00:55)
[2022-07-06] MEDS ORDERED: LIDOCAINE 5% TOPICAL PATCH ONE (01:02)
[2022-07-06] MEDS ORDERED: ACETAMINOPHEN 325 MG TABLET (FP) ONE (01:02)
[2022-07-06] MEDS ORDERED: LIDOCAINE PATCH REMOVAL MC SCH (22:00)
== END 2022-07-06 03:14 | disposition home or self-care (01) ==
LOC: JER 23:42
DX: M54.2 Cervicalgia (principal); M25.552 Pain in left hip; M25.512 Pain in left shoulder; M79.605 Pain in left leg; V49.40XA Driver injured in collision with unspecified motor vehicles in traffic accident, initial encounter; W22.8XXA Striking against or struck by other objects, initial encounter; Y93.I9 Activity, other involving external motion
CPT/HCPCS: 71045-TC-FY; 72170-TC-FY; 84703; 99284-25

== ENCOUNTER 2023-01-02 04:57 | Emergency (ER) | payer OTHER ==
[2023-01-02 05:09] VITALS: BP 111/76; PULSE 89; RESP 18; TEMP 98; BMI 34.5
[2023-01-02] MEDS ORDERED: ACETAMINOPHEN 500 MG TABLET (FP) PO ONE (05:37)
[2023-01-02] MEDS ORDERED: ACETAMINOPHEN 500 MG TABLET (FP) ONE (05:45)
== END 2023-01-02 06:18 | disposition home or self-care (01) ==
LOC: JER 04:57
DX: R22.31 Localized swelling, mass and lump, right upper limb (principal); S61.501A Unspecified open wound of right wrist, initial encounter; W50.3XXA Accidental bite by another person, initial encounter
CPT/HCPCS: 73090-TC-RT-FY

== ENCOUNTER 2024-03-10 15:19 | Emergency (ER) | payer SELFPAY ==
[2024-03-10 15:46] VITALS: BP 112/79; PULSE 76; RESP 16; TEMP 98.3; BMI 35.4
== END 2024-03-10 20:49 | disposition home or self-care (01) ==
LOC: JERFT 15:19
DX: N64.4 Mastodynia (principal)
CPT/HCPCS: 76604; 99284-25

== ENCOUNTER 2024-04-26 22:44 | Emergency (ER) | payer SELFPAY ==
[2024-04-26 22:51] VITALS: BP 114/72; PULSE 88; RESP 20; BMI 35.4
[2024-04-26] MEDS ORDERED: ACETAMINOPHEN 500 MG TABLET (FP) ONE (23:31)
[2024-04-26] MEDS: ACETAMINOPHEN 500 MG TABLET (FP) PO ONE (23:38)
[2024-04-27 00:34] VITALS: TEMP 98.8
== END 2024-04-27 00:36 | disposition home or self-care (01) ==
LOC: JER 22:44
DX: R09.81 Nasal congestion (principal); J06.9 Acute upper respiratory infection, unspecified; R05.9 Cough, unspecified; R50.9 Fever, unspecified; Z20.822 Contact with and (suspected) exposure to COVID-19
CPT/HCPCS: 0241U-QW; 84703; 99283-25

== ENCOUNTER 2024-06-29 02:59 | Emergency (ER) | payer SELFPAY ==
[2024-06-29 03:05] VITALS: BP 113/73; PULSE 80; RESP 18; TEMP 98.4; BMI 35.4
[2024-06-29] MEDS ORDERED: KETOROLAC TROMETHAMINE 15 MG/ML VIAL ONE (03:35)
[2024-06-29] MEDS ORDERED: LIDOCAINE VISCOUS 2% ORAL/TOP 15 ML UNIT-DOSE CUP ONE (03:37)
[2024-06-29] MEDS: KETOROLAC TROMETHAMINE 15 MG/ML VIAL IM ONE (03:40)
[2024-06-29] MEDS: LIDOCAINE VISCOUS 2% ORAL/TOP 15 ML UNIT-DOSE CUP MM ONE (03:40)
== END 2024-06-29 05:08 | disposition home or self-care (01) ==
LOC: JER 02:59
PROC: 3E0233Z Introduction of Anti-inflammatory into Muscle, Percutaneous Approach (ICD-10-PCS; principal; 2024-06-29)
DX: J02.9 Acute pharyngitis, unspecified (principal); H92.03 Otalgia, bilateral
CPT/HCPCS: 36415; 86308; 87651; 99284-25

== ENCOUNTER 2024-07-01 08:47 | Emergency (ER) | payer SELFPAY ==
[2024-07-01 09:03] VITALS: BMI 32.3
[2024-07-01] MEDS ORDERED: DEXAMETHASONE SOD PHOSPHATE 10 MG/1 ML VIAL ONE (09:34)
[2024-07-01] MEDS ORDERED: ACETAMINOPHEN INJECTION 100 ML ONE (09:34)
[2024-07-01] MEDS: DEXAMETHASONE SOD PHOSPHATE 10 MG/1 ML VIAL IVPUSH ONE (09:50)
[2024-07-01] MEDS: ACETAMINOPHEN 1000 MG/100 ML BAG IVPB ONE (09:50)
[2024-07-01 09:55] LABS: ABSOLUTE IMMATURE GRANULOCYTES 0.03 x10^3/uL (0.0-0.031); BASOPHILS # 0.03 x10^3/uL (0.01-0.08); EOSINOPHIL % 0.4 % (0.7-5.8); EOSINOPHILS # 0.04 x10^3/uL (0.04-0.36); HEMATOCRIT 42.2 % (34.1-44.9); MCHC 30.8 g/dl (32.2-35.5); MEAN CELL VOLUME 81.2 fl (79.4-94.8); MEAN PLT VOLUME 11.3 fl (9.4-12.3); MONOCYTE # 0.81 x10^3/uL (0.24-0.86); MONOCYTE % 7.4 % (4.7-12.5); PLATELET COUNT 242 x10^3/uL (182-369); RDW 14.6 % (12.1-16.5)
[2024-07-01 10:12] LABS: POTASSIUM 3.3 mmol/L (3.5-5.1)
[2024-07-01 10:14] LABS: CALCIUM 9.6 mg/dL (8.5-10.1)
[2024-07-01 10:15] LABS: ALBUMIN 3.7 g/dl (3.4-5.0); BLOOD UREA NITROGEN 11.9 mg/dL (7-18)
[2024-07-01 10:18] LABS: CREATININE 0.9 mg/dL (0.55-1.3)
[2024-07-01 10:20] LABS: BILIRUBIN,TOTAL 0.8 mg/dL (0.2-1); TOT PROT 7.5 g/dl (6.4-8.2)
[2024-07-01] MEDS ORDERED: LIDOCAINE HCL 2% (50ML VIAL) INF ONE (12:29)
[2024-07-01] MEDS: MAG HYDROX/ALH/SMC/DPHA/LIDO 240 ML MOUTHWASH MM ONE (13:00)
[2024-07-01] MEDS: CLINDAMYCIN 900 MG PREMIX IVPB 900 MG/50 ML BAG IVPB ONE (13:15)
[2024-07-01] MEDS: HURRICAINE SP EXT TUBE 1 EA EACH TP ONE (13:47)
[2024-07-01] MEDS: TETRACAINE/BENZOCAINE/BUTAMBEN 20 GM SPR TP ONE (14:15)
[2024-07-01] MEDS: LACTATED RINGERS SOLUTION 1000 ML INFUS.BAG IV ONE (14:26)
[2024-07-01 15:06] VITALS: TEMP 98.9
[2024-07-01 16:33] VITALS: BP 132/74; PULSE 80; RESP 16
[2024-07-01] MEDS ORDERED: MAG HYDROX/ALH/SMC/DPHA/LIDO 240 ML MOUTHWASH MM SCH (18:00)
== END 2024-07-01 16:36 | disposition short-term general hospital (02) ==
LOC: JER 08:47
PROC: 3E03329 Introduction of Other Anti-infective into Peripheral Vein, Percutaneous Approach (ICD-10-PCS; principal; 2024-07-01)
PROC: 3E033NZ Introduction of Analgesics, Hypnotics, Sedatives into Peripheral Vein, Percutaneous Approach (ICD-10-PCS; 2024-07-01)
PROC: 3E033GC Introduction of Other Therapeutic Substance into Peripheral Vein, Percutaneous Approach (ICD-10-PCS; 2024-07-01)
DX: J36 Peritonsillar abscess (principal); R50.9 Fever, unspecified; R07.0 Pain in throat
CPT/HCPCS: 36415; 70491-TC; 80053; 84703; 85025; 87070; 87651; 99285-25; J0131; J1100